=== PATIENT | female | born 1935 | race African-American/Black ===

== ENCOUNTER 2018-09-23 14:13 | Emergency (ER) | payer MEDICARE, OTHER | END 2018-09-23 15:00 | disposition home or self-care (01) | LOC: FTE 14:13 | DX: S90.812A Abrasion, left foot, initial encounter (principal); I10 Essential (primary) hypertension; X58.XXXA Exposure to other specified factors, initial encounter; Y92.9 Unspecified place or not applicable | CPT/HCPCS: 99283 ==